=== PATIENT | female | born 1935 | race Caucasian/White ===

== ENCOUNTER 2017-12-04 07:36 | Emergency (ER) | payer OTHER ==
[~2017-12-04] VITALS: Ht 167.6 cm; Wt 77.1 kg
[~2017-12-04 07:36] MED LIST: BENICAR20 MG PO; CATAFLAM50 MG PO; GLIMEPIRIDE4 MG PO; LIPO-FLAVONOID1 EACH PO; PYRIDIUM DS200 MG PO; RECTICARE30 GM TP; STOOL SOFTENER100 MG PO; TRAM1TAB98 PO; ULTRAM50 MG PO; ZOCOR20 MG PO
== END 2017-12-04 09:10 | disposition home or self-care (01) ==
LOC: ER 07:36
DX: M54.2 Cervicalgia (principal); M62.838 Other muscle spasm; H92.02 Otalgia, left ear

== ENCOUNTER → 2017-12-31 | Emergency (ER) | payer OTHER ==
[~2017-12-31] VITALS: Ht 167.6 cm; Wt 77.1 kg
== END | disposition home or self-care (01) ==
LOC: ER 17:11
DX: B34.9 Viral infection, unspecified (principal); J11.1 Influenza due to unidentified influenza virus with other respiratory manifestations

== ENCOUNTER 2018-04-25 08:30 | Day surgery (SDC) | payer OTHER | END 2018-04-25 12:10 | disposition home or self-care (01) | LOC: AMB-ENDOS 08:30 | DX: D12.5 Benign neoplasm of sigmoid colon (principal); K64.8 Other hemorrhoids ==

== ENCOUNTER → 2018-07-31 | Day surgery (SDC) | payer OTHER ==
[~2018-07-31] MED LIST changes: +FOLIC ACID1 MG PO; +LOSARTAN-HCTZ1 EACH PO; +ULTRACET PO; +VITAMIN D31000 UNI1 PO
== END | disposition home or self-care (01) ==
LOC: ADM 07-27 12:30 → CIR.AMB 05:48
DX: C21.1 Malignant neoplasm of anal canal (principal)
CPT/HCPCS: 36590; C1751

== ENCOUNTER 2018-12-24 10:28 | Emergency (ER) | payer OTHER ==
[~2018-12-24] VITALS: Ht 162.6 cm; Wt 78.0 kg
[2018-12-24] MEDS ORDERED: EAR HEALTH PLU500 MG (10:44)
== END 2018-12-24 12:48 | disposition home or self-care (01) ==
LOC: ER 10:28
DX: M26.622 Arthralgia of left temporomandibular joint (principal)

== ENCOUNTER 2019-07-02 15:01 | Emergency (ER) | payer OTHER ==
[~2019-07-02] VITALS: Ht 165.1 cm; Wt 78.0 kg
[~2019-07-02 15:01] MED LIST changes: +EAR HEALTH PLU500 MG
== END 2019-07-02 21:39 | disposition home or self-care (01) ==
LOC: ER 15:01
DX: K29.60 Other gastritis without bleeding (principal)

== ENCOUNTER 2019-09-26 10:31 | Emergency (ER) | payer OTHER ==
[~2019-09-26] VITALS: Ht 167.6 cm; Wt 77.1 kg
== END 2019-09-26 14:00 | disposition home or self-care (01) ==
LOC: ER 10:31
DX: G89.11 Acute pain due to trauma (principal); M25.572 Pain in left ankle and joints of left foot

== ENCOUNTER 2020-11-13 15:18 | Emergency (ER) | payer OTHER ==
[~2020-11-13] VITALS: Ht 167.6 cm; Wt 77.1 kg
== END 2020-11-13 21:27 | disposition home or self-care (01) ==
LOC: ER 15:18
DX: L03.116 Cellulitis of left lower limb (principal)

== ENCOUNTER 2023-03-24 16:24 | Emergency (ER) | payer OTHER ==
[~2023-03-24] VITALS: Ht 167.6 cm; Wt 68.9 kg
[~2023-03-24 16:24] MED LIST changes: +DICLOFENAC SODI75 MG PO; +DUI500 PO
== END 2023-03-24 19:11 | disposition home or self-care (01) ==
LOC: ER 16:24
DX: M15.8 Other polyosteoarthritis (principal)

== ENCOUNTER 2025-02-19 09:07 | Emergency (ER) | payer OTHER ==
[~2025-02-19] VITALS: Ht 167.6 cm; Wt 69.9 kg
[2025-02-19] MEDS ORDERED: GLIMEPIRIDE4 M1 (09:19)
[2025-02-19] MEDS ORDERED: SIMVASTATIN40 MG (09:19)
[2025-02-19] MEDS ORDERED: FAMOTIDINE/PF 20 MG/2 ML VIAL ONE (09:53)
[2025-02-19] MEDS ORDERED: PIPERACILLIN/TAZOBACTAM SODIUM 3.375 GM VIAL IV ONE ×2 (09:53→10:00)
[2025-02-19] MEDS ORDERED: FAMOtidine 10 MG/ML (4ML VIAL) IV ONE (10:00)
[2025-02-19] MEDS ORDERED: 0.9 % SODIUM CHLORIDE 1,000 ML IV ONE (10:00)
[2025-02-19 10:17] LABS: HEMATOCRIT 38.9 % (36.0-45.00); HEMOGLOBIN 13.5 g/dL (12.0-15.00); MEAN CELL VOLUME 99.2 fL (80.00-100.00); MEAN CORPUSCULAR HEMOGLOBIN 34.5 pg (27.00-32.0); MEAN CORPUSCULAR HGB CONC 34.8 g/dl (32.0-36.0); RED BLOOD COUNT 3.92 M/uL (4.00-6.00); RED CELL DISTRIBUTION WIDTH 12.9 % (11.5-14.5)
[2025-02-19 10:32] LABS: PLATELET COUNT 130 K/uL (150-450)
[2025-02-19 10:42] LABS: INR 1.02; PROTHROMBIN TIME 11.1 SECONDS (9.0-11.5)
[2025-02-19] MEDS ORDERED: INSULIN REGULAR, HUMAN 1,000 UNIT/10 ML UNITS IV ONE (10:45)
[2025-02-19 11:19] LABS: ALBUMIN 3.9 gm/dL (3.4-5.0); BILIRUBIN TOTAL 0.58 mg/dL (0.3-1.2); CALCIUM 10.1 mg/dL (8.5-10.1); CREATININE SERUM 1.24 mg/dL (0.55-1.02); GFR 40.73; GLOBULINA 3.4 G/DL (2.4-3.5); POTASSIUM 4.29 mEq/L (3.5-5.1); TOTAL PROTEIN 7.3 gm/dL (6.4-8.2)
[2025-02-19 13:48] LABS: PH,URINE 5.5 (5.0-8.0); URINE APPEARANCE Clear; URINE BILIRRUBIN Negative (NEGATIVE); URINE BLOOD Negative; URINE COLOR Yellow; URINE KETONE Negative (NEGATIVE); URINE LEUKOCYTE Moderate; URINE NITRATE Negative; URINE PROTEIN Negative (NEGATIVE); URINE UROBILINOGEN 0.2 E.U./dl
[2025-02-19 13:49] LABS: URINE BACTERIA 1157.8 uL (0.0-1933); URINE EPITHELIAL CELLS 8.8 uL (0.0-38.8); URINE RBC 4.5 uL (0.0-20.8); URINE WBC 293.4 uL (0.0-23.2)
[2025-02-19 13:58] LABS: URINE CAST 0.14 uL (0.0-1.40); URINE GLUCOSE >=1000 MG/DL (NEGATIVE)
[2025-02-19] MEDS ORDERED: BACTRIM DS TAB1 EACH PO (14:03)
[2025-02-19] MEDS ORDERED: PEPCID AC20 MG PO (14:03)
== END 2025-02-19 15:19 | disposition home or self-care (01) ==
LOC: ER 09:07
PROVIDERS: General Practice
DX: R39.81 Functional urinary incontinence (principal); N39.9 Disorder of urinary system, unspecified; R10.2 Pelvic and perineal pain; E11.9 Type 2 diabetes mellitus without complications
CPT/HCPCS: 36415; 76856; 96365; 96366; 99284; J1815; J2543; J3490; J7030